=== PATIENT | female | born 1980 | race Asian ===

== ENCOUNTER 2017-11-09 06:42 | Day surgery (SDC) | payer BC, OTHER ==
[2017-11-03 14:13] VITALS: BMI 30.7
[2017-11-09] MEDS ORDERED: PROPOFOL 20 ML ONE (11:47)
[2017-11-09] MEDS ORDERED: KETOROLAC TROMETHAMINE 30 MG/1 ML VIAL ONE (11:48)
[2017-11-09] MEDS ORDERED: DEXAMETHASONE SOD PHOSPHATE 4 MG/1 ML VIAL ONE (11:48)
[2017-11-09] MEDS ORDERED: MIDAZOLAM HCL 2 MG/2 ML SINGLE DOSE VIAL ONE (11:48)
[2017-11-09] MEDS ORDERED: MINERAL OIL/PETROLATUM,WHITE 3.5 GM TUBE ONE (12:30)
--- NOTE | 2017-11-09 12:37 | HP ---
History & Physical Update - History History: No Change - Physical Physical: No Change - Assessment Assessment: No Change - Plan Plan: No Change Currently as noted:: Hysteroscopy, D&C
--- NOTE | 2017-11-09 12:41 | OP ---
Operative Note - Note: Operative Date: 11/09/17 Pre-Operative Diagnosis: Menometrorrhagia Operation: Hysteroscopy, D&C Findings: Mildly enlarged retroverted uterus with normal endometrial cavity, no lesions Post-Operative Diagnosis: Same as Pre-op Surgeon: Waqar Velasquez Anesthesiologist/PUMP INSTALLATION AND SERVICER: Mahogany Barnes Anesthesia: General Specimens Removed: Endometrial curettings Estimated Blood Loss (mls): 10 Blood Volume Replaced (mls): 0 Fluid Volume Replaced (mls): 300 Operative Report Dictated: Yes
[2017-11-09] MEDS ORDERED: ONDANSETRON 4 MG/2 ML VIAL IVPUSH PRN (12:46)
[2017-11-09] MEDS ORDERED: ACETAMINOPHEN 1000 MG/100 ML VIAL (NON FORMULARY) IVPB ONE (12:46)
[2017-11-09] MEDS ORDERED: oxyCODONE HCL 5 MG TABLET PO PRN (12:46)
[2017-11-09] MEDS ORDERED: LACTATED RINGERS SOLUTION 1,000 ML IV SCH (13:00)
[2017-11-09] MEDS ORDERED: BACITRACIN 15 GM TUBE TOPICAL OINTMENT ONE (13:03)
[2017-11-09] MEDS ORDERED: ACETAMINOPHEN INJECTION 100 ML IVPB ONE (13:23)
[2017-11-09 14:01] VITALS: TEMP 98.9
[2017-11-09 17:10] VITALS: BP 107/61; PULSE 60
--- NOTE | 2017-11-09 20:29 | OP ---
DATE OF OPERATION: 11/09/2017 PREOPERATIVE DIAGNOSIS: Menometrorrhagia. POSTOPERATIVE DIAGNOSIS: Menometrorrhagia. PROCEDURE: Hysteroscopy dilation and curettage. SURGEON: Jose Dan M.D. LICENSED NURSE PRACTITIONER: None. ANESTHESIOLOGIST: ANESTHESIA: General. COMPLICATIONS: None. PATHOLOGY: Endometrial curettings. ESTIMATED BLOOD LOSS: 10 mL. FLUIDS: 300 mL of crystalloids. FINDINGS: Examination under anesthesia revealed a slightly enlarged retroverted uterus with no pelvic or adnexal masses. Hysteroscopy confirmed a slightly enlarged uterine cavity with no lesions or masses, both fallopian tube ostia were visualized and appeared to be within normal limits. PROCEDURE: The patient was met preoperatively. Risks, benefits, and alternatives of surgery were discussed in detail. All questions were answered. The patient was brought to the OR with the IV running. She was placed on the surgical table in the supine position. General anesthesia was achieved without difficulty. The timeout was conducted as per standard protocol. The patient was then placed in a dorsal lithotomy position using adjustable Po stirrups. She prepped and draped in the usual sterile fashion. A single-toothed tenaculum was applied to cervix retraction. The diagnostic hysteroscopy was they performed with a 3-mm hysteroscope. The uterine cavity appeared to be retroverted and slightly enlarged; however, there were no lesions or masses noted within the uterus. The hysteroscope was then removed, and uterine curettage was then performed using a sharp curet. The tissue was sent to pathology for evaluation. Once the procedure was completed, all the instruments were then removed from the patient. Sponge, lap, and instrument counts were correct. A [id number] suture was placed at the site of a tenaculum for hemostasis; once this was accomplished, good hemostasis was noted. Once again, all of the instrument, sponge, and lap counts were correct. The patient was returned to supine position. The patient was transferred to recovery room in stable condition and awake. JOSE DAN M.D. [id number]
--- NOTE | 2017-11-10 17:38 | PATH ---
Surgical Pathology Report Patient Name: VIVIENNE LYNCH [facility]. Rec. #: [id number] /Age/Gender: 1980 (Age: 37) / F Account: [id number] Location: [facility] SUR[facility] Taken: 11/09/2017 Received: 11/09/2017 Reported: 11/10/2017 Physicians: Waqar Velasquez M.D. Specimen(s) Received ENDOMETRIAL CURETTINGS Clinical History Frequent menstruation Final Diagnosis ENDOMETRIAL CURETTINGS, DILATION AND CURETTAGE: FRAGMENTS OF SECRETORY ENDOMETRIUM, ENDOMETRIAL POLYP, AND BENIGN CERVICAL TISSUE. Electronically Signed Cherelle Waters M.D. Gross Description Received in formalin labeled "endometrial curetting" are multiple fragments of pink-ortiz tissue measuring 3 x 3 x 0.4 cm in aggregate. Entire specimen submitted in one cassette. MLSZ/11/09/2017 sanml/11/09/2017
== END 2017-11-09 16:30 | disposition home or self-care (01) ==
LOC: JASU-SURG 06:42
PROVIDERS: ATTEND Obstetrics & Gynecology
PROC: 0UDB7ZX Extraction of Endometrium, Via Natural or Artificial Opening, Diagnostic (ICD-10-PCS; principal; 2017-11-09 11:00)
PROC: 0UJD8ZZ Inspection of Uterus and Cervix, Via Natural or Artificial Opening Endoscopic (ICD-10-PCS; 2017-11-09 11:00)
DX: N92.1 Excessive and frequent menstruation with irregular cycle (principal)
CPT/HCPCS: 84703; 86850; 86900; 86901; 88305-TC; 94760; J0131

== ENCOUNTER 2023-05-11 04:46 | Inpatient (IN) | payer BC, OTHER ==
[2023-04-30 13:01] VITALS: BMI 21.5
[2023-05-11] MEDS ORDERED: TRANEXAMIC ACID 1000 MG/10 ML VIAL IVPUSH ONE (08:58)
[2023-05-11] MEDS ORDERED: ROCURONIUM BROMIDE 50 MG/5 ML SYRINGE ONE (09:17)
[2023-05-11] MEDS ORDERED: MIDAZOLAM HCL 2 MG/2 ML SINGLE DOSE VIAL ONE (09:17)
[2023-05-11] MEDS ORDERED: LIDOCAINE HCL/PF 2% SDV 5ML VIAL ONE (09:17)
[2023-05-11] MEDS ORDERED: PROPOFOL 20 ML ONE ×2 (09:17→11:53)
[2023-05-11] MEDS ORDERED: ceFAZolin SODIUM 1 GM VIAL ONE (09:19)
[2023-05-11] MEDS ORDERED: SODIUM CHLORIDE 0.9% P/F 10 ML VIAL IJ ONE (09:19)
[2023-05-11] MEDS ORDERED: ONDANSETRON 4 MG/2 ML VIAL IVPUSH PRN (09:27)
[2023-05-11] MEDS ORDERED: ceFAZolin SODIUM 1 GM VIAL IVPB ONE (09:47)
[2023-05-11] MEDS ORDERED: ONDANSETRON 4 MG/2 ML VIAL ONE (09:59)
[2023-05-11] MEDS ORDERED: DEXAMETHASONE SOD PHOSPHATE 4 MG/1 ML VIAL ONE (09:59)
[2023-05-11] MEDS ORDERED: METOCLOPRAMIDE HCL INJECTION 10 MG/2 ML VIAL ONE (10:00)
[2023-05-11] MEDS ORDERED: TRANEXAMIC ACID 1000 MG/10 ML VIAL ONE (10:19)
[2023-05-11] MEDS ORDERED: SUGAMMADEX SODIUM 200 MG/2 ML VIAL ONE (12:01)
[2023-05-11] MEDS: ACETAMINOPHEN 1000 MG/100 ML BAG IVPB ONE (13:15)
[2023-05-11] MEDS ORDERED: ACETAMINOPHEN INJECTION 100 ML IVPB ONE (13:15)
[2023-05-11] MEDS ORDERED: LACTATED RINGERS SOLUTION 1,000 ML IV SCH (15:15)
[2023-05-11] MEDS: CEFAZOLIN SODIUM 2 GM in DEXTROSE 5%-WATER 100 ML IVPB SCH (17:19)
[2023-05-11] MEDS ORDERED: CEFAZOLIN SODIUM 2 GM in DEXTROSE 5%-WATER - 100 ML IVPB SCH (18:00)
[2023-05-12] MEDS: CEFAZOLIN SODIUM 2 GM in DEXTROSE 5%-WATER 100 ML IVPB SCH (02:12)
[2023-05-12 08:09] LABS: BASO % 0.1 % (0-2.0); HEMATOCRIT 29.7 % (32.4-45.2); HEMOGLOBIN 9.9 GM/dL (10.7-15.3); LYMPH % 21.3 % (8-40); MCH 28.4 pg (25.7-33.7); MCHC 33.4 g/dl (32.0-36.0); MEAN CELL VOLUME 85.1 fl (80-96); MEAN PLT VOLUME 7.4 fl (7.5-11.1); MONO % 7.5 % (3.8-10.2); NEUT % 71.1 % (42.8-82.8); PLATELET COUNT 269 10^3/uL (134-434); RDW 14.5 % (11.6-15.6); WHITE BLOOD COUNT 11.4 K/mm3 (4.0-10.0)
[2023-05-12] MEDS: IBUPROFEN 600 MG TABLET (FP) PO PRN ×2 (08:43→17:43)
[2023-05-12 09:12] LABS: ALBUMIN 2.8 g/dl (3.4-5.0); BLOOD UREA NITROGEN 7.2 mg/dL (7-18)
[2023-05-12 09:13] LABS: CALCIUM 8.3 mg/dL (8.5-10.1); CREATININE 0.6 mg/dL (0.55-1.3)
[2023-05-12 09:15] LABS: BILIRUBIN,TOTAL 0.4 mg/dL (0.2-1); TOT PROT 6.2 g/dl (6.4-8.2)
[2023-05-12] MEDS: ACETAMINOPHEN 325 MG TABLET (FP) PO PRN (11:00)
[2023-05-12 17:40] VITALS: RESP 18
[2023-05-12] MEDS ORDERED: BISACODYL 10 MG SUPP.RECT PR PRN (21:48)
[2023-05-12] MEDS ORDERED: SENNOSIDES/DOCUSATE COMBO (SENNA PLUS) TABLET (UD) PO PRN (21:49)
[2023-05-12] MEDS: ACETAMINOPHEN 1000 MG/100 ML BAG IVPB ONE (22:32)
[2023-05-12] MEDS: morphine SULFATE/PF 1 MG/2 ML (2cc Syringe - QUVA) EP ONE ×3 (22:41→22:45)
[2023-05-12] MEDS: CEFAZOLIN 2 GM in DEXTROSE 5%-WATER 100 ML IVPB ONE ×2 (22:42→22:43)
[2023-05-13] MEDS: IBUPROFEN 600 MG TABLET (FP) PO PRN ×3 (01:10→15:32)
[2023-05-13 08:57] VITALS: BP 110/72; PULSE 87; TEMP 97.8
[2023-05-13] MEDS: ACETAMINOPHEN 325 MG TABLET (FP) PO PRN (11:29)
== END 2023-05-13 16:20 | disposition home or self-care (01) | DRG 743 ==
LOC: J2C 04:46 → J3W 15:25
PROVIDERS: ADMIT Obstetrics & Gynecology; ATTEND Obstetrics & Gynecology
PROC: 0UT70ZZ Resection of Bilateral Fallopian Tubes, Open Approach (ICD-10-PCS; 2023-05-11)
PROC: 0UT90ZZ Resection of Uterus, Open Approach (ICD-10-PCS; principal; 2023-05-11 09:00)
DX: D25.1 Intramural leiomyoma of uterus (principal); D25.2 Subserosal leiomyoma of uterus; N92.1 Excessive and frequent menstruation with irregular cycle; R10.2 Pelvic and perineal pain; N72 Inflammatory disease of cervix uteri
CPT/HCPCS: 36415; 80053; 81025; 85025; 86850; 86900; 86901; 88305-TC; 94760